=== PATIENT | female | born 1990 | race Hispanic/Latino ===

== ENCOUNTER 2021-12-09 10:21 | Inpatient (IN) | payer MEDICAID, OTHER ==
[2021-12-09] MEDS ORDERED: Phenylephrine 40 MG/NS 250 ML 250 ML ONE (10:34)
[2021-12-09] MEDS ORDERED: Ketorolac Tromethamine 30 MG/ML VIAL ONE (10:34)
[2021-12-09] MEDS ORDERED: Oxytocin 10 UNITS/ML VIAL ONE (10:34)
[2021-12-09] MEDS ORDERED: Dexamethasone 4 mg/ml Vial ONE (10:35)
[2021-12-09] MEDS ORDERED: Ondansetron PF 4 MG/2 ML Vial ONE (10:35)
[2021-12-09] MEDS ORDERED: Metoclopramide HCl 10 MG/2 ML VIAL ONE (10:35)
[2021-12-09] MEDS ORDERED: hydrALAZINE 20 MG/ML VIAL SLOW IVP PRN ×2 (11:17→16:45)
[2021-12-09] MEDS ORDERED: Bicitra 30 ML UDCUP PO PRN (11:17)
[2021-12-09] MEDS ORDERED: CEFAZOLIN 2 GM in Sodium Chloride 0.9% 100 ML IVPB SCH (11:17)
[2021-12-09] MEDS ORDERED: Promethazine HCl 25 MG/ML VIAL IM PRN ×3 (11:17→17:15)
[2021-12-09] MEDS ORDERED: Ondansetron PF 4 MG/2 ML Vial IVP PRN ×4 (11:17→17:15)
[2021-12-09] MEDS ORDERED: Famotidine/PF 20 mg/2ml Vial SLOW IVP PRN (11:17)
[2021-12-09] MEDS ORDERED: Morphine PF 10 MG/10 ML VIAL ONE (11:54)
[2021-12-09 12:07] VITALS: BMI 32.9
[2021-12-09 12:15] LABS: Hemoglobin 12.7 g/dL (12.0-15.5); Mean Corpuscular HGB CONC 32.4 g/dL (32.0-36.0); Mean Corpuscular Volume 86.3 fl (81.6-98.3); Mean Platelet Volume 11.1 fl (7.4-10.4); Platelet Count 207 10x3/uL (150-450); RBC Distribution Width 17.3 % (11.5-14.5); Red Blood Cell (RBC) Count 4.54 10x6/uL (3.90-5.03); White Blood Cell (WBC) Count 9.3 10x3/uL (3.5-10.5)
[2021-12-09 12:27] LABS: SARS-CoV-2 NAA Rapid Test Not Detected (NotDetected)
[2021-12-09 12:38] LABS: HBSAg Index 0.23 S/CO (0-0.99); Hep B Surf Ag Non-Reactive S/CO (NonReactive); Syphilis Antibody Nonreactive (Nonreactive); Syphilis Antibody Index 0.04 S/CO (<1.00 Non-Reactive)
[2021-12-09] MEDS ORDERED: Moisturizing Cream (Eucerin) 113 GM JAR TOP PRN ×2 (13:01→17:15)
[2021-12-09] MEDS ORDERED: Ondansetron HCl/PF 4 MG/2 ML Vial IVP PRN (13:01)
[2021-12-09] MEDS ORDERED: diphenhydrAMINE 50 MG/ML VIAL IVP PRN ×2 (13:01→17:15)
[2021-12-09] MEDS ORDERED: Naloxone HCl 0.4 mg/ml Vial IVP PRN ×2 (13:01)
[2021-12-09] MEDS ORDERED: Naloxone HCl 0.4 mg/ml Vial IV PRN ×4 (13:01→17:15)
[2021-12-09] MEDS ORDERED: Meperidine HCl/PF 25 MG/ML VIAL SLOW IVP PRN (13:01)
[2021-12-09] MEDS ORDERED: Fentanyl 100 MCG/2 ML VIAL SLOW IVP PRN (13:01)
[2021-12-09] MEDS ORDERED: Promethazine HCl 25 MG SUPP PR PRN ×2 (13:01→17:15)
[2021-12-09] MEDS ORDERED: Communication Order-Pharmacy FS SCH ×2 (13:15→17:15)
[2021-12-09] MEDS ORDERED: Bisacodyl 10 MG SUPP PR PRN (16:45)
[2021-12-09] MEDS ORDERED: Lanolin Ointment 7 GM TUBE TOP PRN (16:45)
[2021-12-09] MEDS ORDERED: HYDROcodone/Acetaminophen 5/325 mg Tablet PO PRN ×2 (16:45)
[2021-12-09] MEDS ORDERED: NS w/ Oxytocin 30 units 500 ML IV SCH (16:45)
[2021-12-09] MEDS ORDERED: Zolpidem Tartrate 5 MG TAB PO PRN (16:45)
[2021-12-09] MEDS ORDERED: diphenhydrAMINE 25 MG CAP PO PRN (16:45)
[2021-12-09] MEDS ORDERED: Ibuprofen 800 MG TAB PO SCH (17:00)
[2021-12-09] MEDS ORDERED: NO PO,IM,IV OR SC NARCOTICS FOR 12HR EXCEPT BY ANESTHESIA PO SCH (17:04)
[2021-12-09] MEDS ORDERED: Ketorolac Tromethamine 30 MG/ML VIAL IVP PRN (19:00)
[2021-12-09] MEDS: Ferrous Sulfate 325 MG TAB PO SCH (20:02)
[2021-12-09] MEDS: Ketorolac Tromethamine 30 MG/ML VIAL IVP PRN (20:59)
[2021-12-10 04:46] LABS: Hemoglobin 11.3 g/dL (12.0-15.5); Mean Corpuscular Volume 84.9 fl (81.6-98.3); Mean Platelet Volume 11.2 fl (7.4-10.4); Platelet Count 175 10x3/uL (150-450); Red Blood Cell (RBC) Count 4.03 10x6/uL (3.90-5.03); White Blood Cell (WBC) Count 13.7 10x3/uL (3.5-10.5)
[2021-12-10] MEDS: Ketorolac Tromethamine 30 MG/ML VIAL IVP PRN ×2 (05:44→11:23)
[2021-12-10] MEDS: Ferrous Sulfate 325 MG TAB PO SCH ×2 (08:46→19:33)
[2021-12-10] MEDS: Prenatal Vitamin 1 TAB PO SCH (09:18)
[2021-12-10] MEDS: HYDROcodone/Acetaminophen 5/325 mg Tablet PO PRN ×3 (09:18→20:56)
[2021-12-10] MEDS ORDERED: Boostrix 0.5 ML (Tdap) VIAL (>/=7 yrs of age) IM ONE (16:45)
[2021-12-10] MEDS: Simethicone Chewable 80 MG TAB PO PRN (20:55)
[2021-12-11] MEDS: Ibuprofen 800 MG TAB PO SCH ×4 (00:25→23:24)
[2021-12-11] MEDS: HYDROcodone/Acetaminophen 5/325 mg Tablet PO PRN ×5 (04:57→21:40)
[2021-12-11] MEDS: Simethicone Chewable 80 MG TAB PO PRN ×4 (04:58→21:40)
[2021-12-11] MEDS: Ferrous Sulfate 325 MG TAB PO SCH ×2 (08:10→19:25)
[2021-12-11] MEDS: Prenatal Vitamin 1 TAB PO SCH (09:36)
[2021-12-12] MEDS: Ibuprofen 800 MG TAB PO SCH ×2 (06:30→13:24)
[2021-12-12 08:02] VITALS: BP 118/70; TEMP 98.4
[2021-12-12] MEDS: Ferrous Sulfate 325 MG TAB PO SCH (08:14)
[2021-12-12] MEDS: Prenatal Vitamin 1 TAB PO SCH (08:18)
== END 2021-12-12 13:28 | disposition home or self-care (01) | DRG 785 ==
LOC: CSHLD 10:21 → CSHANTE 16:27
PROVIDERS: ADMIT Obstetrics & Gynecology; ATTEND Obstetrics & Gynecology
PROC: 10D00Z1 Extraction of Products of Conception, Low, Open Approach (ICD-10-PCS; principal; 2021-12-09)
PROC: 0UB70ZZ Excision of Bilateral Fallopian Tubes, Open Approach (ICD-10-PCS; 2021-12-09)
DX: O34.211 Maternal care for low transverse scar from previous cesarean delivery (principal); Z3A.39 39 weeks gestation of pregnancy; Z37.0 Single live birth; Z20.822 Contact with and (suspected) exposure to COVID-19
CPT/HCPCS: 36415; 51702; 85027; 86780; 86850; 86900; 86901; 87340; 88302; J1100; J1200; J1885; J2274; J2405; J2550; J2590; J2765; S0028; U0002